=== PATIENT | female | born 1995 | race Caucasian/White ===

== ENCOUNTER 2023-11-20 07:57 | Day surgery (SDC) | payer BC ==
[2023-11-19 11:19] VITALS: BMI 20.9
[2023-11-20] MEDS ORDERED: PROPOFOL 20 ML ONE (11:51)
[2023-11-20] MEDS ORDERED: PROPOFOL 200 MG/20 ML VIAL ONE (12:11)
== END 2023-11-20 13:15 | disposition home or self-care (01) ==
LOC: ULT 07:57
PROVIDERS: ATTEND Internal Medicine Gastroenterology
PROC: 0DJ08ZZ Inspection of Upper Intestinal Tract, Via Natural or Artificial Opening Endoscopic (ICD-10-PCS; principal; 2023-11-20)
DX: K21.9 Gastro-esophageal reflux disease without esophagitis (principal); F17.290 Nicotine dependence, other tobacco product, uncomplicated
CPT/HCPCS: 36416; 76700; J2704